=== PATIENT | female | born 1955 | race Caucasian/White ===

== ENCOUNTER 2017-12-22 20:01 | Inpatient (IN) | payer BC, OTHER ==
[~2017-12-22] VITALS: Ht 154.9 cm; Wt 68.0 kg
[~2017-12-22 20:01] MED LIST: CYCLOBENZAPRINE5 MG PO; MELOXICAM15 MG PO; TYLENOL WITH C1 EACH PO; ULTRAM 50MG50 MG PO
[2017-12-22] MEDS ORDERED: SODIUM CHLORIDE 0.9% 1000ML 1,000 ML IV ONE ×2 (20:15→20:45)
[2017-12-22 20:36] LABS: BASOPHILS % 0.3 % (0.0-1.0); EOSINOPHILS % 0.1 % (0.0-6.0); HEMATOCRIT 36.5 % (34.2-44.1); HEMOGLOBIN 12.4 g/dL (12.0-16.0); LYMPHOCYTES % 13.6 % (18.0-39.1); MEAN CORPUSCULAR VOLUME 91.3 fL (81-99); MONOCYTES % 6.9 % (4.4-11.3); NEUTROPHILS # (AUTO) 11.4 (2.1-6.9); NEUTROPHILS % 78.6 % (38.7-80.0); PLATELET COUNT 314 x10e3/uL (140-360); RED CELL DISTRIBUTION WIDTH 13.8 % (11.7-14.4)
[2017-12-22 20:54] LABS: ALBUMIN 2.8 g/dL (3.5-5.0); ALBUMIN/GLOBULIN RATIO 0.6 (0.8-2.0); ANION GAP 14.2 mmol/L (8-16); CALCIUM 8.8 mg/dL (8.4-10.2); CREATININE, SERUM 1.26 mg/dL (0.57-1.11); POTASSIUM 4.2 mmol/L (3.5-5.1)
[2017-12-22 21:01] LABS: CREATINE KINASE MB 0.2 ng/mL (0-5.0)
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
[2017-12-22 21:26] LABS: AMPHETAMINES SCREEN,URINE NEGATIVE (NEGATIVE); BENZODIAZEPINES SCREEN,URINE POSITIVE (NEGATIVE); BILIRUBIN,URINE NEGATIVE (NEGATIVE); CLARITY,URINE CLEAR (CLEAR); COLOR,URINE YELLOW (YELLOW); KETONES,URINE NEGATIVE (NEGATIVE); LEUKOCYTE ESTERASE ,URINE NEGATIVE (NEGATIVE); NITRITE,URINE NEGATIVE (NEGATIVE); PHENCYCLIDINE SCREEN,URINE NEGATIVE (NEGATIVE); PROTEIN,URINE DIPSTICK NEGATIVE (NEGATIVE); URINE UROBILINOGEN 0.2 mg/dL (0.2 - 1)
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
[2017-12-22 21:36] LABS: EPITHELIAL CELLS,URINE FEW /LPF; MUCUS,URINE FEW (RARE); WBC,URINE (MAN) 0-5 /HPF (0-5)
[2017-12-22 22:02] LABS: INR 1.08; PROTHROMBIN TIME 13.2 seconds (11.9-14.5)
[2017-12-22] MEDS: SODIUM CHLORIDE 0.9% 1000ML 1,000 ML IV SCH (23:04)
[2017-12-22 23:30] VITALS: BP 101/54
[2017-12-23] VITALS (39 sets, daily range): BP systolic 81–119; BP diastolic 41–106
[2017-12-23] MEDS ORDERED: SODIUM CHLORIDE 0.9% 50ML 50 ML ONE (00:33)
[2017-12-23] MEDS ORDERED: IOPAMIDOL 370 MG/ML 200 ML INFUS..BTL INJ ONE (00:35)
[2017-12-23] MEDS ORDERED: ACETAMINOPHEN 325 MG SUPP PR PRN (02:00)
[2017-12-23 05:17] LABS: BASOPHILS % 0.2 % (0.0-1.0); EOSINOPHILS % 0.1 % (0.0-6.0); HEMATOCRIT 32.8 % (34.2-44.1); HEMOGLOBIN 11.2 g/dL (12.0-16.0); LYMPHOCYTES # (AUTO) 1.4 (1.0-3.2); LYMPHOCYTES % 13.8 % (18.0-39.1); MEAN CORPUSCULAR HEMOGLOBIN 31.2 pg (28-32); MEAN CORPUSCULAR HGB CONC 34.1 g/dL (31-35); MEAN CORPUSCULAR VOLUME 91.4 fL (81-99); MONOCYTES # (AUTO) 0.6 (0.2-0.8); MONOCYTES % 5.9 % (4.4-11.3); NEUTROPHILS # (AUTO) 8.2 (2.1-6.9); NEUTROPHILS % 79.4 % (38.7-80.0); PLATELET COUNT 233 x10e3/uL (140-360); RED BLOOD COUNT 3.59 x10e6/uL (3.6-5.1); RED CELL DISTRIBUTION WIDTH 14.1 % (11.7-14.4)
[2017-12-23 05:49] LABS: ALANINE AMINOTRANSFERASE 11 IU/L (0-55); ALBUMIN 2.2 g/dL (3.5-5.0); ALBUMIN/GLOBULIN RATIO 0.6 (0.8-2.0); ALKALINE PHOSPHATASE 80 IU/L (40-150); ANION GAP 10.9 mmol/L (8-16); BLOOD UREA NITROGEN 23 mg/dL (7-26); BUN/CREATININE RATIO 28 (6-25); CALCIUM 7.8 mg/dL (8.4-10.2); CARBON DIOXIDE 20 mmol/L (22-29); CHLORIDE 107 mmol/L (98-107); CREATININE, SERUM 0.82 mg/dL (0.57-1.11); EST GLOMERULAR FILTRATION RATE > 60 ML/MIN (60-); GLUCOSE 100 mg/dL (74-118); POTASSIUM 3.9 mmol/L (3.5-5.1); SODIUM 134 mmol/L (136-145)
[2017-12-23] MEDS: SODIUM CHLORIDE 0.9% 1000ML 1,000 ML IV SCH ×3 (06:31→22:31)
[2017-12-23] MEDS: ACETAMINOPHEN 325 MG SUPP PR PRN (10:22)
[2017-12-23] MEDS: ONDANSETRON HCL INJ 2 MG/ML VIAL IV PRN (10:22)
[2017-12-23] MEDS ORDERED: DILTIAZEM HCL IV SOLN 125 MG in SODIUM CHLORIDE 0.9% 100 ML 100 ML IV STA (10:49)
[2017-12-23] MEDS ORDERED: DILTIAZEM HCL 5 MG/ML 5 ML VIAL IV ONE (11:30)
[2017-12-23] MEDS ORDERED: REGADENOSON 0.4 MG/5 ML SYR IV ONE (11:36)
--- NOTE | 2017-12-23 13:18 | Consultation ---
DATE OF CONSULTATION: December 23, 2017 CARDIOLOGY CONSULTATION CHIEF COMPLAINT: Abdominal pain. HISTORY OF PRESENT ILLNESS: Patient is a 62-year-old who came to the emergency room with abdominal pain. CAT scan of the abdomen was done, which demonstrated 4.5 cm soft tissue mass along the right piriformis muscle with necrosis and a necrotic lymph node. The patient has developed a lot of fever and the patient subsequently developed paroxysmal atrial fibrillation and a cardiology consultation was called. The patient has had no chest pain and no shortness of breath. PAST MEDICAL HISTORY: Significant for 1. Paroxysmal atrial fibrillation in the past. 2. Hypertension. SOCIAL HISTORY: The patient does smoke. FAMILY HISTORY: The patient's father of a lung cancer. The patient has a family history of coronary artery disease. PHYSICAL EXAMINATION VITAL SIGNS: The patient's temperature was 99.5, pulse was 120, blood pressure was 100/60. HEAD, EARS, EYES, NOSE AND THROAT: The patient's cranium is normocephalic and atraumatic. Extraocular muscles were intact. Sclerae were anicteric. Pupils were equal, round, and reactive to light. There is no pallor or cyanosis of the oral mucosa. There is no erythema or edema of the throat. NECK: Supple. No jugular venous distention. No carotid bruits. CHEST: Clear to auscultation and percussion. CARDIAC: Demonstrated normal S1 and S2 with a short 2/6 systolic murmur. ABDOMEN: Demonstrated some tenderness in the left flank. There are good bowel sounds. EXTREMITIES: There is no clubbing, no cyanosis, and no edema. NEUROLOGIC: The patient was alert and oriented x3. Cranial nerves II through XII are intact. Motor strength +5/+5 in all limbs. The patient's initial EKG demonstrated normal sinus rhythm with some nonspecific ST and T wave changes. Telemetry later demonstrated paroxysmal atrial fibrillation. IMPRESSION: The patient is a 62-year-old with an abdominal mass and paroxysmal atrial fibrillation. RECOMMENDATIONS: Are as follows 1. The patient will require IV Cardizem to control the rate of the atrial fibrillation. 2. The patient will require Lovenox for a temporary anticoagulation. 3. An echocardiogram with Doppler has been ordered. Job#: [id number] SUB cc: Dr. Corley
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
[2017-12-23] MEDS: FAMOTIDINE 20 MG TAB PO SCH (16:30)
--- NOTE | 2017-12-23 18:07 | Diagnostic Imaging Report ---
PROCEDURE:PELVIC ULTRASOUND COMPARISON:CT of the abdomen and pelvis from 12/22/2017 INDICATIONS:eval uterine findings on CT, pelvic congestion TECHNIQUE: Grayscale transverse and sagittal transabdominal images were obtained of the pelvis. FINDINGS: UTERUS: 7.5 x 3.5 x 5.5 cm. No solid uterine masses. ENDOMETRIUM: Endometrial stripe is not thickened and measures 0.1 cm. Homogenous echotexture without focal thickening. RIGHT OVARY: Right ovary measures 2.3 x 1.6 x 2.8 cm. No cyst or mass. LEFT OVARY: The left ovary measures 2.4 x 2.0 x 2.7 cm. No cyst or mass. There is no free fluid within the pelvis. No adnexal masses. CONCLUSION: No uterine or adnexal masses. Dictated by: Chavez Pedro M.D. on 12/23/2017 at 18:11 Electronically approved by: Chavez Pedro M.D. on 12/23/2017 at 18:11
[2017-12-23] MEDS ORDERED: DILTIAZEM HCL IV SOLN 125 MG in SODIUM CHLORIDE 0.9% 100 ML 100 ML IV SCH (20:00)
[2017-12-23] MEDS: ENOXAPARIN SOD INJ 60 MG/0.6 ML SYR SC SCH (20:43)
[2017-12-23] MEDS: MORPHINE SULFATE 2 MG/ML SYR IV PRN (20:51)
[2017-12-24] VITALS (60 sets, daily range): BP systolic 73–141; BP diastolic 39–100
[2017-12-24] MEDS: MORPHINE SULFATE 2 MG/ML SYR IV PRN ×3 (01:10→20:31)
[2017-12-24] MEDS: ACETAMINOPHEN 325 MG SUPP PR PRN (02:26)
[2017-12-24 04:39] LABS: BASOPHILS % 0.2 % (0.0-1.0); EOSINOPHILS % 0.1 % (0.0-6.0); HEMATOCRIT 31.2 % (34.2-44.1); HEMOGLOBIN 10.1 g/dL (12.0-16.0); LYMPHOCYTES # (AUTO) 1.5 (1.0-3.2); LYMPHOCYTES % 11.1 % (18.0-39.1); MEAN CORPUSCULAR HEMOGLOBIN 30.7 pg (28-32); MEAN CORPUSCULAR HGB CONC 32.4 g/dL (31-35); MEAN CORPUSCULAR VOLUME 94.8 fL (81-99); NEUTROPHILS % 80.8 % (38.7-80.0); PLATELET COUNT 235 x10e3/uL (140-360); RED BLOOD COUNT 3.29 x10e6/uL (3.6-5.1); RED CELL DISTRIBUTION WIDTH 14.3 % (11.7-14.4)
[2017-12-24 04:55] LABS: ANION GAP 10.9 mmol/L (8-16); BLOOD UREA NITROGEN 9 mg/dL (7-26); BUN/CREATININE RATIO 12 (6-25); CALCIUM 7.8 mg/dL (8.4-10.2); CARBON DIOXIDE 19 mmol/L (22-29); CHLORIDE 107 mmol/L (98-107); CREATININE, SERUM 0.76 mg/dL (0.57-1.11); EST GLOMERULAR FILTRATION RATE > 60 ML/MIN (60-); GLUCOSE 115 mg/dL (74-118); POTASSIUM 3.9 mmol/L (3.5-5.1); SODIUM 133 mmol/L (136-145)
[2017-12-24 05:20] LABS: THYROID STIMULATING HORMONE 0.547 uIU/mL (0.350-4.940)
--- NOTE | 2017-12-24 06:52 | Diagnostic Imaging Report ---
EXAMINATION: CHEST SINGLE (PORTABLE) INDICATION: Productive cough. COMPARISON: None FINDINGS: TUBES and LINES: None. LUNGS: Lungs are well inflated. There are bibasilar atelectasis. There is no evidence of pneumonia or pulmonary edema. PLEURA: No pleural effusion or pneumothorax. HEART AND MEDIASTINUM: The cardiomediastinal silhouette is unremarkable. BONES AND SOFT TISSUES: No acute osseous lesion. Soft tissues are unremarkable. UPPER ABDOMEN: No free air under the diaphragm. IMPRESSION: No acute thoracic abnormality. Signed by: Dr. Monty Graham M.D. on 12/24/2017 6:49 AM
[2017-12-24] MEDS: ENOXAPARIN SOD INJ 60 MG/0.6 ML SYR SC SCH ×2 (08:53→20:23)
[2017-12-24] MEDS: FAMOTIDINE 20 MG TAB PO SCH ×2 (08:53→16:14)
[2017-12-24 11:59] LABS: MAGNESIUM 1.8 MG/DL (1.3-2.1); PHOSPHORUS 1.8 MG/DL (2.3-4.7)
[2017-12-24 12:20] LABS: FREE THYROXINE INDEX 1.4118 (1.4-3.8); THYROID STIMULATING HORMONE 0.547 uIU/mL (0.350-4.940)
[2017-12-24] MEDS ORDERED: DIGOXIN INJ 0.25 MG/ML 2 ML AMP IV ONE (12:30)
[2017-12-24] MEDS ORDERED: AMIODARONE HCL 200 MG TAB PO ONE ×2 (13:00→13:30)
[2017-12-24] MEDS: METOPROLOL TARTRATE INJ 1 MG/ML VIAL IV PRN ×2 (15:04→22:49)
[2017-12-24] MEDS: VANCOMYCIN 1GM/NS 250 ML 250 ML IV SCH (15:52)
[2017-12-24] MEDS: SODIUM CHLORIDE 0.9% 1000ML 1,000 ML IV SCH (15:53)
[2017-12-24] MEDS: OYST-CAL-D 500MG TABLET PO SCH (16:14)
[2017-12-24] MEDS ORDERED: ACETAMINOPHEN 325 MG TAB PO PRN (16:15)
[2017-12-24] MEDS ORDERED: CEFEPIME 1GM/NS 0.9% 50 ML 50 ML IV SCH (22:00)
[2017-12-24] MEDS: CEFEPIME HCL 1 GM VIAL IV SCH (22:49)
[2017-12-25] VITALS (42 sets, daily range): BP systolic 87–157; BP diastolic 44–132
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
[2017-12-25] MEDS: VANCOMYCIN 1GM/NS 250 ML 250 ML IV SCH ×2 (03:19→14:12)
[2017-12-25] MEDS: SODIUM CHLORIDE 0.9% 1000ML 1,000 ML IV SCH ×2 (03:19→11:45)
[2017-12-25] MEDS: MORPHINE SULFATE 2 MG/ML SYR IV PRN ×3 (03:26→21:47)
[2017-12-25 05:20] LABS: BASOPHILS % 0.2 % (0.0-1.0); EOSINOPHILS % 0.3 % (0.0-6.0); HEMATOCRIT 32.9 % (34.2-44.1); HEMOGLOBIN 10.8 g/dL (12.0-16.0); LYMPHOCYTES # (AUTO) 1.6 (1.0-3.2); LYMPHOCYTES % 17.8 % (18.0-39.1); MEAN CORPUSCULAR HEMOGLOBIN 30.4 pg (28-32); MEAN CORPUSCULAR HGB CONC 32.8 g/dL (31-35); MEAN CORPUSCULAR VOLUME 92.7 fL (81-99); MONOCYTES # (AUTO) 0.7 (0.2-0.8); MONOCYTES % 7.1 % (4.4-11.3); NEUTROPHILS # (AUTO) 6.7 (2.1-6.9); NEUTROPHILS % 73.8 % (38.7-80.0); PLATELET COUNT 236 x10e3/uL (140-360); RED BLOOD COUNT 3.55 x10e6/uL (3.6-5.1); RED CELL DISTRIBUTION WIDTH 14.3 % (11.7-14.4)
[2017-12-25 05:45] LABS: ANION GAP 11.4 mmol/L (8-16); BLOOD UREA NITROGEN 6 mg/dL (7-26); BUN/CREATININE RATIO 9 (6-25); CALCIUM 7.9 mg/dL (8.4-10.2); CARBON DIOXIDE 21 mmol/L (22-29); CHLORIDE 108 mmol/L (98-107); CREATININE, SERUM 0.69 mg/dL (0.57-1.11); EST GLOMERULAR FILTRATION RATE > 60 ML/MIN (60-); GLUCOSE 108 mg/dL (74-118); MAGNESIUM 1.6 MG/DL (1.3-2.1); POTASSIUM 3.4 mmol/L (3.5-5.1); SODIUM 137 mmol/L (136-145)
[2017-12-25] MEDS: CEFEPIME HCL 1 GM VIAL IV SCH ×3 (06:15→21:46)
[2017-12-25] MEDS ORDERED: AMIODARONE HCL 200 MG TAB PO SCH (09:00)
[2017-12-25] MEDS: DOCUSATE SODIUM 100 MG CAP PO SCH (09:24)
[2017-12-25] MEDS: AMIODARONE HCL 200 MG TAB PO SCH (09:24)
[2017-12-25] MEDS: OYST-CAL-D 500MG TABLET PO SCH ×2 (09:24→16:23)
[2017-12-25] MEDS: ENOXAPARIN SOD INJ 60 MG/0.6 ML SYR SC SCH ×2 (09:24→14:43)
[2017-12-25] MEDS: FAMOTIDINE 20 MG TAB PO SCH ×2 (09:24→15:38)
[2017-12-25] MEDS: METOPROLOL TARTRATE INJ 1 MG/ML VIAL IV PRN ×2 (09:25→14:02)
[2017-12-25] MEDS: ONDANSETRON HCL INJ 2 MG/ML VIAL IV PRN (09:25)
[2017-12-25] MEDS: POTASSIUM CHLORIDE 20 MEQ TAB CR PO SCH ×2 (14:06→14:17)
[2017-12-25] MEDS ORDERED: SODIUM CHLORIDE 0.9% 1000ML 1,000 ML IV SCH (18:00)
[2017-12-26] VITALS (50 sets, daily range): BP systolic 101–183; BP diastolic 64–118
[2017-12-26] MEDS: MORPHINE SULFATE 2 MG/ML SYR IV PRN ×3 (02:02→20:40)
[2017-12-26] MEDS: VANCOMYCIN 1GM/NS 250 ML 250 ML IV SCH ×2 (02:45→16:00)
[2017-12-26 04:51] LABS: BASOPHILS % 0.3 % (0.0-1.0); EOSINOPHILS # (AUTO) 0.1 (0.0-0.4); EOSINOPHILS % 1.3 % (0.0-6.0); HEMATOCRIT 31.1 % (34.2-44.1); HEMOGLOBIN 10.1 g/dL (12.0-16.0); LYMPHOCYTES # (AUTO) 1.7 (1.0-3.2); LYMPHOCYTES % 21.4 % (18.0-39.1); MEAN CORPUSCULAR HEMOGLOBIN 30.2 pg (28-32); MEAN CORPUSCULAR HGB CONC 32.5 g/dL (31-35); MEAN CORPUSCULAR VOLUME 93.1 fL (81-99); MONOCYTES # (AUTO) 0.6 (0.2-0.8); MONOCYTES % 8.1 % (4.4-11.3); NEUTROPHILS # (AUTO) 5.3 (2.1-6.9); NEUTROPHILS % 68.3 % (38.7-80.0); PLATELET COUNT 221 x10e3/uL (140-360); RED BLOOD COUNT 3.34 x10e6/uL (3.6-5.1); RED CELL DISTRIBUTION WIDTH 14.4 % (11.7-14.4)
[2017-12-26 05:14] LABS: ANION GAP 10.9 mmol/L (8-16); BLOOD UREA NITROGEN 6 mg/dL (7-26); BUN/CREATININE RATIO 9 (6-25); CALCIUM 8.2 mg/dL (8.4-10.2); CARBON DIOXIDE 21 mmol/L (22-29); CHLORIDE 109 mmol/L (98-107); CREATININE, SERUM 0.66 mg/dL (0.57-1.11); EST GLOMERULAR FILTRATION RATE > 60 ML/MIN (60-); GLUCOSE 99 mg/dL (74-118); POTASSIUM 3.9 mmol/L (3.5-5.1); SODIUM 137 mmol/L (136-145)
[2017-12-26] MEDS: CEFEPIME HCL 1 GM VIAL IV SCH ×3 (06:35→22:04)
[2017-12-26] MEDS: ENOXAPARIN SOD INJ 60 MG/0.6 ML SYR SC SCH ×2 (07:33→20:39)
[2017-12-26] MEDS: METOPROLOL TARTRATE INJ 1 MG/ML VIAL IV PRN ×2 (08:33→14:27)
[2017-12-26] MEDS: OYST-CAL-D 500MG TABLET PO SCH ×2 (09:00→17:00)
[2017-12-26] MEDS ORDERED: LIDOCAINE HCL 1% LOCAL INJ 20 ML VIAL ONE (12:17)
[2017-12-26] MEDS ORDERED: MIDAZOLAM HCL 2 MG/2 ML VIAL ONE (12:38)
[2017-12-26] MEDS ORDERED: SODIUM CHLORIDE 0.9% 500ML 500 ML ONE (12:39)
[2017-12-26] MEDS ORDERED: MIDAZOLAM HCL 2 MG/2 ML VIAL IV ONE (12:45)
--- NOTE | 2017-12-26 14:13 | Diagnostic Imaging Report ---
PROCEDURE: CT GUIDED NEEDLE PLACEMENT COMPARISON: CT Abdomen/Pelvis 12/22/17. INDICATIONS: NECROTIC MASS PYRIFORMIS CONTRAST: None MEDICATIONS:10 ml 1% lidocaine, 2 mg of IV Versed administered by ICU nursing EBL: < 5 ml SPECIMEN: Given to pathology DESCRIPTION OF PROCEDURE: Informed consent was obtained. The patient's right buttock was prepped and draped in the standard sterile fashion. Multiple CT images were used to localize the abnormality. The skin and deeper subcutaneous tissues were anesthetized with lidocaine. Using CT guidance, 19G 12.5 cm introducer was advanced into the right piriformis lesion. A 22 gauge Chiba needle was advanced into the lesion and approximately 5 cc of purulent fluid was aspirated. Subsequently a 20 gauge x 15 cm core biopsy device was advanced into the introducer needle and two core biopsy samples were obtained. Samples were provided to pathologist who was present for the procedure and confirmed satisfactory samples for analysis. The introducer needle was removed. Repeat CT demonstrated no evidence of complication. The patient tolerated the procedure well. CONCLUSION: CT guided aspiration and core biopsy of right piriformis lesion as above. Dictated by: DARION HUNG M.D. on 12/26/2017 at 14:18 Electronically approved by: DARION HUNG M.D. on 12/26/2017 at 14:18
[2017-12-26] MEDS: ONDANSETRON HCL INJ 2 MG/ML VIAL IV PRN (15:54)
[2017-12-26] MEDS: FAMOTIDINE 20 MG TAB PO SCH ×2 (16:00→16:30)
[2017-12-26] MEDS: AMIODARONE HCL 200 MG TAB PO SCH (16:00)
[2017-12-26] MEDS: DOCUSATE SODIUM 100 MG CAP PO SCH (16:00)
[2017-12-26] MEDS: DIGOXIN 0.25 MG TAB PO SCH (16:00)
--- NOTE | 2017-12-26 16:34 | Progress Note ---
DATE: December 25, 2017 The patient is doing better today; however, she was found to have fever. Patient was seen. She remains in intensive care unit. Still no complaints except for the fever. REVIEW OF SYSTEMS: There is nothing new. PHYSICAL EXAMINATION GENERAL: She is currently alert, without acute distress . VITAL SIGNS: Stable. Currently afebrile. HEENT: Not icteric. NECK: Supple. CHEST: Clear. ABDOMEN: Soft. IMPRESSIONS 1. Fever. 2. Lymph node mass with necrosis. Concern about malignancy versus infection. CT-guided aspiration in the morning. Blood cultures are negative. Will send for culture and sensitivity, AFB and fungal, and pathology. Continue the current antibiotic. Job#: [id number] CQ
[2017-12-27] VITALS (35 sets, daily range): BP systolic 97–157; BP diastolic 35–111
[2017-12-27] MEDS: MORPHINE SULFATE 2 MG/ML SYR IV PRN ×5 (00:15→20:00)
[2017-12-27] MEDS: VANCOMYCIN 1GM/NS 250 ML 250 ML IV SCH ×2 (02:56→14:32)
[2017-12-27 04:55] LABS: BASOPHILS % 0.3 % (0.0-1.0); EOSINOPHILS # (AUTO) 0.2 (0.0-0.4); EOSINOPHILS % 2.6 % (0.0-6.0); HEMOGLOBIN 10.8 g/dL (12.0-16.0); LYMPHOCYTES # (AUTO) 2.4 (1.0-3.2); LYMPHOCYTES % 31.1 % (18.0-39.1); MEAN CORPUSCULAR HEMOGLOBIN 31.1 pg (28-32); MEAN CORPUSCULAR HGB CONC 33.8 g/dL (31-35); MEAN CORPUSCULAR VOLUME 92.2 fL (81-99); MONOCYTES # (AUTO) 0.7 (0.2-0.8); MONOCYTES % 8.6 % (4.4-11.3); NEUTROPHILS # (AUTO) 4.4 (2.1-6.9); NEUTROPHILS % 56.7 % (38.7-80.0); PLATELET COUNT 270 x10e3/uL (140-360); RED BLOOD COUNT 3.47 x10e6/uL (3.6-5.1); RED CELL DISTRIBUTION WIDTH 14.4 % (11.7-14.4)
[2017-12-27 05:19] LABS: ANION GAP 11.6 mmol/L (8-16); BLOOD UREA NITROGEN 12 mg/dL (7-26); BUN/CREATININE RATIO 15 (6-25); CALCIUM 8.1 mg/dL (8.4-10.2); CARBON DIOXIDE 21 mmol/L (22-29); CHLORIDE 109 mmol/L (98-107); CREATININE, SERUM 0.79 mg/dL (0.57-1.11); EST GLOMERULAR FILTRATION RATE > 60 ML/MIN (60-); GLUCOSE 106 mg/dL (74-118); MAGNESIUM 1.6 MG/DL (1.3-2.1); POTASSIUM 3.6 mmol/L (3.5-5.1); SODIUM 138 mmol/L (136-145)
[2017-12-27] MEDS: CEFEPIME HCL 1 GM VIAL IV SCH ×3 (06:12→22:25)
[2017-12-27] MEDS: FAMOTIDINE 20 MG TAB PO SCH ×2 (08:05→17:09)
[2017-12-27] MEDS: ENOXAPARIN SOD INJ 60 MG/0.6 ML SYR SC SCH ×3 (08:05→20:00)
[2017-12-27] MEDS: DOCUSATE SODIUM 100 MG CAP PO SCH (08:05)
[2017-12-27] MEDS: AMIODARONE HCL 200 MG TAB PO SCH (08:05)
[2017-12-27] MEDS: OYST-CAL-D 500MG TABLET PO SCH ×2 (08:05→17:09)
[2017-12-27] MEDS: DIGOXIN 0.25 MG TAB PO SCH (08:07)
[2017-12-28] VITALS (13 sets, daily range): BP systolic 119–179; BP diastolic 73–102
[2017-12-28] MEDS: VANCOMYCIN 1GM/NS 250 ML 250 ML IV SCH ×2 (02:24→16:30)
[2017-12-28] MEDS: CEFEPIME HCL 1 GM VIAL IV SCH ×3 (05:32→22:12)
[2017-12-28] MEDS: OYST-CAL-D 500MG TABLET PO SCH ×2 (08:12→17:15)
[2017-12-28] MEDS: FAMOTIDINE 20 MG TAB PO SCH ×2 (08:12→17:15)
[2017-12-28] MEDS: ENOXAPARIN SOD INJ 60 MG/0.6 ML SYR SC SCH (08:12)
[2017-12-28] MEDS: DIGOXIN 0.25 MG TAB PO SCH (08:13)
[2017-12-28] MEDS: AMIODARONE HCL 200 MG TAB PO SCH (08:13)
[2017-12-28] MEDS: DOCUSATE SODIUM 100 MG CAP PO SCH (08:13)
[2017-12-28] MEDS: MORPHINE SULFATE 2 MG/ML SYR IV PRN ×3 (10:41→22:12)
[2017-12-28] MEDS ORDERED: SODIUM CHLORIDE 0.9% 250ML 250 ML ONE (16:33)
[2017-12-28] MEDS: RIVAROXABAN 20 MG TABLET PO SCH (17:15)
[2017-12-28] MEDS: ONDANSETRON HCL INJ 2 MG/ML VIAL IV PRN (17:29)
[2017-12-29] MEDS: VANCOMYCIN 1GM/NS 250 ML 250 ML IV SCH ×2 (02:37→15:16)
[2017-12-29 04:00] VITALS: BP 127/86
[2017-12-29] MEDS: MORPHINE SULFATE 2 MG/ML SYR IV PRN ×3 (04:28→21:40)
[2017-12-29] MEDS: CEFEPIME HCL 1 GM VIAL IV SCH ×3 (06:12→21:40)
[2017-12-29] MEDS ORDERED: MELATONIN 3 MG TAB PO PRN (07:15)
[2017-12-29 07:42] LABS: BASOPHILS % 0.4 % (0.0-1.0); EOSINOPHILS # (AUTO) 0.4 (0.0-0.4); EOSINOPHILS % 3.6 % (0.0-6.0); HEMATOCRIT 30.4 % (34.2-44.1); HEMOGLOBIN 10.3 g/dL (12.0-16.0); LYMPHOCYTES # (AUTO) 2.2 (1.0-3.2); LYMPHOCYTES % 22.9 % (18.0-39.1); MEAN CORPUSCULAR HEMOGLOBIN 30.8 pg (28-32); MEAN CORPUSCULAR HGB CONC 33.9 g/dL (31-35); MONOCYTES # (AUTO) 0.8 (0.2-0.8); MONOCYTES % 7.9 % (4.4-11.3); NEUTROPHILS # (AUTO) 6.2 (2.1-6.9); NEUTROPHILS % 64.6 % (38.7-80.0); PLATELET COUNT 322 x10e3/uL (140-360); RED BLOOD COUNT 3.34 x10e6/uL (3.6-5.1); RED CELL DISTRIBUTION WIDTH 14.1 % (11.7-14.4)
[2017-12-29] MEDS: FAMOTIDINE 20 MG TAB PO SCH ×2 (07:45→16:46)
[2017-12-29 07:57] LABS: ANION GAP 11.7 mmol/L (8-16); BLOOD UREA NITROGEN 6 mg/dL (7-26); BUN/CREATININE RATIO 8 (6-25); CALCIUM 8.6 mg/dL (8.4-10.2); CARBON DIOXIDE 26 mmol/L (22-29); CHLORIDE 106 mmol/L (98-107); CREATININE, SERUM 0.72 mg/dL (0.57-1.11); EST GLOMERULAR FILTRATION RATE > 60 ML/MIN (60-); GLUCOSE 100 mg/dL (74-118); MAGNESIUM 1.6 MG/DL (1.3-2.1); POTASSIUM 3.7 mmol/L (3.5-5.1); SODIUM 140 mmol/L (136-145)
[2017-12-29] MEDS: DOCUSATE SODIUM 100 MG CAP PO SCH ×2 (08:19→16:46)
[2017-12-29] MEDS: OYST-CAL-D 500MG TABLET PO SCH ×2 (08:20→16:46)
[2017-12-29] MEDS: AMIODARONE HCL 200 MG TAB PO SCH (08:20)
[2017-12-29] MEDS: DIGOXIN 0.25 MG TAB PO SCH (08:20)
[2017-12-29 08:29] VITALS: BP 129/81
[2017-12-29] MEDS: ONDANSETRON HCL INJ 2 MG/ML VIAL IV PRN ×2 (08:32→21:40)
[2017-12-29] MEDS: POLYETHYLENE GLYCOL 3350 17 GM PACK PO SCH (09:00)
[2017-12-29 11:06] VITALS: BP 129/81
[2017-12-29 12:31] VITALS: BP 144/83
[2017-12-29 16:06] VITALS: BP 131/80
[2017-12-29] MEDS: RIVAROXABAN 20 MG TABLET PO SCH (16:46)
[2017-12-29 20:00] VITALS: BP 155/94
[2017-12-30] VITALS: BP 133/82
[2017-12-30] MEDS: VANCOMYCIN 1GM/NS 250 ML 250 ML IV SCH (02:45)
[2017-12-30 04:00] VITALS: BP 139/86
[2017-12-30] MEDS: CEFEPIME HCL 1 GM VIAL IV SCH (05:15)
[2017-12-30] MEDS: ONDANSETRON HCL INJ 2 MG/ML VIAL IV PRN (05:46)
[2017-12-30] MEDS: MORPHINE SULFATE 2 MG/ML SYR IV PRN ×2 (05:46→10:06)
[2017-12-30 05:53] LABS: BASOPHILS # (AUTO) 0.1 (0.0-0.1); BASOPHILS % 0.5 % (0.0-1.0); EOSINOPHILS # (AUTO) 0.3 (0.0-0.4); EOSINOPHILS % 3.4 % (0.0-6.0); HEMATOCRIT 32.9 % (34.2-44.1); HEMOGLOBIN 10.9 g/dL (12.0-16.0); LYMPHOCYTES # (AUTO) 2.3 (1.0-3.2); LYMPHOCYTES % 23.3 % (18.0-39.1); MEAN CORPUSCULAR HEMOGLOBIN 30.3 pg (28-32); MEAN CORPUSCULAR HGB CONC 33.1 g/dL (31-35); MEAN CORPUSCULAR VOLUME 91.4 fL (81-99); MONOCYTES # (AUTO) 0.8 (0.2-0.8); MONOCYTES % 7.5 % (4.4-11.3); NEUTROPHILS # (AUTO) 6.4 (2.1-6.9); NEUTROPHILS % 64.6 % (38.7-80.0); PLATELET COUNT 370 x10e3/uL (140-360); RED CELL DISTRIBUTION WIDTH 14.2 % (11.7-14.4)
[2017-12-30 06:24] LABS: ANION GAP 12.8 mmol/L (8-16); BLOOD UREA NITROGEN 7 mg/dL (7-26); BUN/CREATININE RATIO 9 (6-25); CALCIUM 8.9 mg/dL (8.4-10.2); CARBON DIOXIDE 27 mmol/L (22-29); CHLORIDE 106 mmol/L (98-107); CREATININE, SERUM 0.75 mg/dL (0.57-1.11); EST GLOMERULAR FILTRATION RATE > 60 ML/MIN (60-); GLUCOSE 109 mg/dL (74-118); MAGNESIUM 1.8 MG/DL (1.3-2.1); POTASSIUM 3.8 mmol/L (3.5-5.1); SODIUM 142 mmol/L (136-145)
[2017-12-30 07:51] VITALS: BP 132/78
[2017-12-30] MEDS ORDERED: XARELTO10 MG PO (09:33)
[2017-12-30] MEDS ORDERED: AMIODARONE HCL200 MG PO (09:33)
[2017-12-30] MEDS ORDERED: LANOXIN250 MCG PO (09:33)
[2017-12-30] MEDS ORDERED: LEVAQUIN500 MG PO (09:33)
[2017-12-30] MEDS: FAMOTIDINE 20 MG TAB PO SCH (09:33)
[2017-12-30] MEDS: DOCUSATE SODIUM 100 MG CAP PO SCH (09:33)
[2017-12-30] MEDS: AMIODARONE HCL 200 MG TAB PO SCH (09:33)
[2017-12-30] MEDS: DIGOXIN 0.25 MG TAB PO SCH (09:34)
[2017-12-30] MEDS: OYST-CAL-D 500MG TABLET PO SCH (09:34)
[2017-12-30] MEDS: POLYETHYLENE GLYCOL 3350 17 GM PACK PO SCH (09:34)
[2017-12-30 11:00] VITALS: BP 132/78
[2017-12-30 11:44] VITALS: BP 132/78
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
== END 2017-12-30 12:29 | disposition home or self-care (01) | DRG 500 ==
LOC: ER 20:01 → ERHOLD 22:06 → IMCU 23:10 → ICU 12-23 12:47 → MED/SURG3 12-28 13:33
PROVIDERS: ADMIT Internal Medicine; ATTEND Internal Medicine
PROC: 0KBN3ZX Excision of Right Hip Muscle, Percutaneous Approach, Diagnostic (ICD-10-PCS; principal; 2017-12-26)
DX: M60.08 Infective myositis, other site (principal); A41.9 Sepsis, unspecified organism; N17.9 Acute kidney failure, unspecified; E87.1 Hypo-osmolality and hyponatremia; L03.114 Cellulitis of left upper limb; I71.4 Abdominal aortic aneurysm, without rupture; E86.0 Dehydration; I48.0 Paroxysmal atrial fibrillation; E83.51 Hypocalcemia; D64.9 Anemia, unspecified; I10 Essential (primary) hypertension; B95.0 Streptococcus, group A, as the cause of diseases classified elsewhere; B95.62 Methicillin resistant Staphylococcus aureus infection as the cause of diseases classified elsewhere; V49.3XXA Car occupant (driver) (passenger) injured in unspecified nontraffic accident, initial encounter; Z88.2 Allergy status to sulfonamides; G47.00 Insomnia, unspecified; S40.812A Abrasion of left upper arm, initial encounter; S40.811A Abrasion of right upper arm, initial encounter
CPT/HCPCS: 10022; 20206; 36415; 70450; 71045; 71260; 72125; 74177; 76856; 77012; 80048; 80053; 80202; 80307; 81001; 82533; 82550; 82553; 83605; 83735; 83880; 84100; 84436; 84443; 84479; 84484; 84550; 85025; 85610; 85730; 86850; 86900; 87040; 87070; 87071; 87075; 87086; 87102; 87116; 87186; 87205; 87206; 88112; 88172; 88173; 88304; 88305; 93005; 93306; 96372; 99284; J0692; J1160; J1650; J2001; J2250; J2270; J2405; J3370; J7030; J7040; J7050; Q9967